=== PATIENT | female | born 1980 | race Caucasian/White ===

== ENCOUNTER 2018-04-12 01:03 | Outpatient (CLI) | END 2018-04-12 03:10 | disposition home or self-care (01) ==

== ENCOUNTER 2018-05-27 19:35 | Emergency (ER) | END 2018-05-27 20:39 | disposition home or self-care (01) ==

== ENCOUNTER 2018-05-27 20:49 | Outpatient (CLI) | END 2018-05-27 22:34 | disposition home or self-care (01) ==